=== PATIENT | female | born 1950 | race Caucasian/White ===

== ENCOUNTER → 2016-11-15 | Emergency (ER) | payer MEDICARE, OTHER | END | disposition left against medical advice (07) | LOC: DL.ED 14:20 | DX: Z53.21 Procedure and treatment not carried out due to patient leaving prior to being seen by health care provider (principal) ==

== ENCOUNTER 2019-03-10 05:58 | Day surgery (SDC) | payer MEDICARE, OTHER ==
[2019-03-10] MEDS ORDERED: Midazolam 1 MG/ML 2 ML SDV IV ONE ×7 (05:59→07:04)
[2019-03-10] MEDS ORDERED: fentaNYL 100 MCG/2 ML SDV IV ONE ×4 (05:59→07:07)
[2019-03-10] MEDS ORDERED: Midazolam 1 MG/ML 2 ML SDV ONE (06:17)
[2019-03-10] MEDS ORDERED: fentaNYL 100 MCG/2 ML SDV ONE (06:18)
[2019-03-10] MEDS ORDERED: Dextrose 5%-0.45% NaCl 1,000 ML IV SCH (07:00)
[2019-03-10] MEDS ORDERED: Sodium Chloride 0.9% 10 ML Syringe FLUSH PRN (07:00)
[2019-03-10 10:08] VITALS: BP 138/57
--- NOTE | 2019-03-10 12:51 | OR ---
DATE: 03/10/2019 PROCEDURE PERFORMED: Total colonoscopy, narrowband imaging, and pinch biopsy. INSTRUMENT USED: [id number] Olympus video colonoscope. PREMEDICATIONS: Fentanyl 150 mcg intravenous, Versed 4 mg intravenous. Nasal O2 cannula. The procedure was done under pulse oximetry, BP recording, and teletypesetter monitor. INDICATION: Screening colonoscopic examination is done for detection of any polypoid lesions and removal, endoscopic hemostasis therapy if needed. DESCRIPTION OF PROCEDURE: Initial rectal exam was unremarkable. Rigid anoscopy was normal. The colonoscope was passed with ease. Numerous scattered diverticula were noted in the distal left colon along with deformity. The scope was passed with ease into the ileocecal area. Photographs were taken of the normal-appearing cecum, identified by landmarks of appendiceal orifice and double-bulged ileocecal folds. No bleeding was noted from any of the visualized areas at the commencement of the examination. Bowel perforation was found to be adequate, [place] scale 2 in all the regions. In the area of hepatic flexure, more than 2 cm sized benign-appearing sessile polyp was noted, NBI views were obtained, superficial pinch biopsy was taken and sent for histopathology. No stricture. No vascular ectasia. No large isolated ulcerations seen. No evidence of diffuse inflammatory bowel disease in the form of friability, contact bleeding, or ulcerations. Probing the proximal sides of folds and flexures using adequate distention and clearing up the stool material, withdrawal of the scope was made, cecum to rectum, time over 6 minutes. No bleeding was noted from any of the visualized areas at the completion of the examination. IMPRESSION: 1. Diverticulosis. 2. Hepatic flexure sessile polyp. The patient tolerated the procedure well. [facility] /[id number]
--- NOTE | 2019-03-10 14:33 | LETTER ---
03/10/2019 Osbaldo Zuleta MD [facility] [address] [place] [address] RE: BRENDAMAISHA MALICK : [address] Zuleta: Ms. Maisha Oliver Brenda had colonoscopic examination done this morning and she tolerated the procedure well. I herewith send a copy of the endoscopy note and photographs for your review. Thank you. Sincerely, [facility] /[id number]
== END 2019-03-10 09:24 | disposition home or self-care (01) ==
LOC: DL.ENDO 05:58
PROVIDERS: ATTEND Internal Medicine Gastroenterology
DX: Z12.11 Encounter for screening for malignant neoplasm of colon (principal); D12.3 Benign neoplasm of transverse colon; F17.210 Nicotine dependence, cigarettes, uncomplicated; I10 Essential (primary) hypertension; Z79.899 Other long term (current) drug therapy; Z88.0 Allergy status to penicillin
CPT/HCPCS: 45380; J2250; J3010; J7042

== ENCOUNTER 2024-08-29 19:16 | Emergency (ER) | payer MEDICARE, OTHER ==
[2024-08-29 19:20] VITALS: PULSE 95
[2024-08-29] MEDS: Sodium Chloride 0.9% 1,000 ML IV ONE (19:52)
[2024-08-29 19:58] LABS: BASOPHILS PERCENT AUTO 0.2 % (0.0-1.0); EOSINOPHILS PERCENT AUTO 1.5 % (1.0-3.0); HEMATOCRIT 47.8 % (37.0-47.0); HEMOGLOBIN 15.5 g/dL (12.0-16.0); LYMPHOCYTES PERCENT AUTO 7.5 % (20.5-50.1); MEAN CORPUSCULAR HEMOGLOBIN 28.8 pg (27.0-34.0); MEAN CORPUSCULAR HGB CONC 32.4 g/dL (33.0-35.0); MEAN CORPUSCULAR VOLUME 88.8 fL (80-100); MONOCYTES PERCENT AUTO 6.5 % (2-8); NEUTROPHILS PERCENT AUTO 84.3 % (42.2-75.2); PLATELET COUNT,PLT 162 10^3/uL (150-450); RED BLOOD CELL COUNT 5.38 10^6/uL (4.2-5.4); WHITE BLOOD CELL COUNT,WBC 10.1 10^3/uL (5.0-10.0)
[2024-08-29 20:23] LABS: A/G RATIO 0.9; ALBUMIN 3.7 g/dL (3.4-5.0); ANION GAP 13.6 mEq/L (7-13); BILIRUBIN TOTAL 0.5 mg/dL (0.2-1.0); CALCIUM 8.9 mg/dL (8.5-10.1); CREATININE 1.29 mg/dL (0.55-1.02); EST CRCL DRUG DOSING (CG) 37.77 mL/min; LACTIC ACID 1.5 mmol/L (0.4-2.0); POTASSIUM,K 3.6 mmol/L (3.5-5.1); PROTEIN TOTAL,TP 7.7 g/dL (6.4-8.2)
[2024-08-29 22:35] VITALS: BP 134/62
== END 2024-08-30 01:17 | disposition home or self-care (01) ==
LOC: DL.ED 19:16
DX: U07.1 COVID-19 (principal); J10.1 Influenza due to other identified influenza virus with other respiratory manifestations; R55 Syncope and collapse; I10 Essential (primary) hypertension; E66.9 Obesity, unspecified; Z90.89 Acquired absence of other organs; Z87.891 Personal history of nicotine dependence; Z88.0 Allergy status to penicillin; Z79.899 Other long term (current) drug therapy; Z68.39 Body mass index [BMI] 39.0-39.9, adult
CPT/HCPCS: 36415; 70450; 71045; 72125; 80053; 80307; 83605; 83690; 83735; 84484; 85025; 87428; 93005; 96360; 99285; J7030

== ENCOUNTER 2025-06-20 07:32 | Day surgery (SDC) | payer MEDICARE ==
[2025-06-20] MEDS ORDERED: Propofol 200 MG/20 ML SDV IV ONE (07:33)
[2025-06-20] MEDS ORDERED: Lactated Ringers 1,000 ML IV ONE (07:33)
[2025-06-20] MEDS: Lactated Ringers 1,000 ML IV SCH (08:03)
[2025-06-20] MEDS ORDERED: Propofol 200 MG/20 ML SDV ONE (10:06)
[2025-06-20 10:15] VITALS: BP 119/70; PULSE 79
== END 2025-06-20 10:25 | disposition home or self-care (01) ==
LOC: DL.ENDO 07:32
PROVIDERS: ATTEND Internal Medicine Gastroenterology
DX: Z12.11 Encounter for screening for malignant neoplasm of colon (principal); K57.30 Diverticulosis of large intestine without perforation or abscess without bleeding; E66.09 Other obesity due to excess calories; I10 Essential (primary) hypertension; Z90.49 Acquired absence of other specified parts of digestive tract; Z98.0 Intestinal bypass and anastomosis status; Z80.0 Family history of malignant neoplasm of digestive organs; Z86.0101 Personal history of adenomatous and serrated colon polyps; Z68.41 Body mass index [BMI] 40.0-44.9, adult; Z88.0 Allergy status to penicillin; Z79.899 Other long term (current) drug therapy
CPT/HCPCS: G0105; J2704; J7120; 00811; 99100